=== PATIENT | female | born 1990 | race Caucasian/White ===

== ENCOUNTER 2018-02-11 11:30 | Inpatient (IN) | payer SELFPAY ==
[2018-02-11 13:46] VITALS: BMI 25.8
[2018-02-11] MEDS: miSOPROStol 200 MCG Tablet 800 MCG VAGINAL (15:39)
[2018-02-11 15:41] LABS: Hematocrit 35.7 % (37-47); Hemoglobin 11.9 g/dl (12.0-15.0); Mean Corp Hgb Conc 33.3 g/gl (32-36); Mean Corpuscular Hgb 30.9 pg (27.0-32.0); Mean Corpuscular Volume 92.7 fL (81-99); Mean Platelet Vol. 10.5 fl (6.2-12.0); Platelet Count 208 K/mm3 (150-450); RBC Distribution Width CV 13.3 % (11.6-14.6); RBC Distribution Width SD 44.6 fl (35.1-43.9); Red Blood Count 3.85 M/mm3 (4.2-5.4)
[2018-02-11 15:44] LABS: Scan Indicated on CBC? Y/N NO
--- NOTE | 2018-02-11 19:11 | NURSING ---
1830 Spoke with Mom about our sharing the [facility] basket for grief. We discussed each item in the basket to see what she would like and would not. Mom is not interested in photography but is interested in doing molds and ink prints of hands and feet. We discussed if her milk would come in following her discharge and how to handle this event if this would occur. Mom very open in discussing her wishes and what would please her following delivery. Mom encouraged to take all the time she needs for grieving because everyone grieves differently but it is so important that she does not sadler it. Mom was very agreeable in discussing her wishes and thoughts following her delivery. No tears at this time but realizes that she may feel very differently following her delivery when she sets her eyes on her little one. We discussed our grieving walk to remember service in March and that she would be receiving an invitation but in no ways means they have to come but would be encouraged to think about it as a family. Hugs were given and let Mom know she would be in my thoughts and prayers. Brandie RODRIGUEZ
[2018-02-11] MEDS: miSOPROStol 200 MCG Tablet 400 MCG VAGINAL ×2 (19:44→23:46)
[2018-02-11] MEDS: Acetaminophen 325 MG Tablet PO (22:08)
--- NOTE | 2018-02-12 | PLAC_PTH ---
PATIENT: KATE DILLARD LOC: WP U#:[id number] AGE/SX: 27/F ROOM: WP021 RE02/11/[address]: Dr. Rhona Lange MD : 1990 BED: 1 DIS: 02/12/2018 SPEC #: [id number] RECD: 02/12/18 13:16 STATUS: CHRIS REKarthikeyan #: [id number] YESSI: 02/12/18 00:[address]: Rhona Lange DEPT: SURGICAL PATHOLOGY RECD BY: Jesús Steinberg ENTERED: 02/12/18 13:16 SP TYPE: PLACENTA OTHR DR: No Primary Care Phys Tissues: Placenta, NOS Procedures: Surgery Specimen Level V HEADER OPERATION: Vaginal delivery PRE-OP DIAGNOSIS: 24-week demise TISSUE SUBMITTED: Placenta MICROSCOPIC DIAGNOSIS Pichardo placenta (227 gm): Umbilical cord ? trivascular with no inflammation. Placental membranes ? acute deciduitis with focal acute chorionitis. Placental disc ? immature placenta consistent with gestational age, increased intraparenchymal fibrin plaques, focal Carey-Sandro change. AM:isrrael 02/13/18 MICROSCOPIC DESCRIPTION Slides are reviewed. GROSS DESCRIPTION SPECIMEN: PLACENTA / CLINICAL INFORMATION: A. Weight: Unavailable B. Gestational Age: 25 weeks C. Sex: Female PLACENTAL WEIGHT (POST FIXATION): 227 gm PLACENTAL DIMENSIONS: 15 x 12 x 2.5 cm PLACENTAL SHAPE: Usual ovoid PLACENTAL WEIGHT FOR GESTATIONAL AGE: Within normal limits MEMBRANES - Present A. Insertion: Marginal B. Site of rupture from edge: At edge of placental disc C. Color of membrane: Roca-sahu D. Abnormalities: None UMBILICAL CORD - Present A. Color: Roca-sahu B. Insertion: Eccentric C. Length: 53 cm D. Diameter: 1.1 cm E. Number of vessels: Three F. Abnormalities: None PLACENTAL DISC ? The specimen consists of a placenta with attached membranes and umbilical cord. A. Color of surface: Roca-sahu B. surface abnormalities: None C. Maternal cotyledons: Intact with minimal tears D. Attached retro placental clot: No clot E. Cut surface: Dark red and spongy F. Lesions: None G. Separate clot: Absent SECTIONS SUBMITTED: 1. Membrane roll and umbilical cord ( end notched) 2. Placental disc, and maternal surfaces 3. Placental disc, and maternal surfaces 4. Placental disc, and maternal surfaces AM:isrrael 02/12/18 TC:2 CPT: 24046
[2018-02-12] MEDS: Ondansetron 4 MG/2 ML Vial IV (01:35)
[2018-02-12] MEDS: 0.9% Saline Lock 10 ML Syringe IV (01:37)
[2018-02-12] MEDS: Oxytocin 30 units/NS 500 ml 30 UNITS/500 ML IV.SOLN 334 UNITS IV (01:51)
--- NOTE | 2018-02-12 02:20 | PCM.HP.OB ---
- Problem List (1) IUFD at 20 weeks or more of gestation Status: Acute (2) Limited care in second trimester Status: Acute History Date of Admission: 02/12/18 History of this : This is a 27 year-old, at 25 weeks gestational age presents with IUFD diagnosed in the office yesterday. She had received care from a blocklayer in the community without any complications thus far but noted no movement for 4 days. She denies any bleeding, fever, abdominal pain, discharge, or dysuria. She has a daughter who is a year old born uncomplicated at home. Allergies No Known Allergies Allergy (Unverified 02/10/18 12:53) Home Medications: Home Medications NK [NK] 02/10/18 Smoking Status: Never smoker Alcohol: None Number of Fetus(es): 1 Heart Tracing: none seen. color doppler done in office yesterday and no heart tones seen. History Past Pregnancies: Past Pregnancies previous term uncomplicated Labs: Mom's Labs & Results 02/11/18 02/11/18 02/11/18 15:15 15:15 15:15 WBC 8.0 RBC 3.85 L Hgb 11.9 L Hct 35.7 L MCV 92.7 MCH 30.9 MCHC 33.3 RDW 13.3 RDW Differential 44.6 H Plt Count 208 MPV 10.5 Kleihauer-Betke F Hgb Pending Blood Type O POSITIVE Antibody Screen NEGATIVE Course Did the patient receive Yes care? Labs HIV/AIDS Not done Current Obstetrical History Gestational Diabetes No Incompetent Cervix No Infertility No IUGR No Macrosomia No Hypertension/Pre-eclampsia No Placenta Previa/Abruption No PTL/PROM No Uterine anomaly No Oligohydramnios No Polyhydramnios No Multiple gestation No Past Medical History Asthma No Diabetes No Hypertension No Heart disease No Mitral valve prolapse No Neurologic/Seizure disorder/ No Migraines Kidney disease No Liver disease No Varicosities No Clotting disorders/Hx of DVT No Thyroid Dysfunction No Other medical diseases No Psychiatric disorders No Major trauma No Abnormal PAP smear No Sleep apnea No Mammogram in the last 2 years No Medications Taken During Dose/Freq.: [PNV] one tablet Last Date/Time of Medication 02/09/18 Taken: [PNV] Reason for taking medication [ took occasionally PNV] Social History Marital Status: Alleged father meliza Chapman Smoking No Smoking Status Never smoker How long have you used never took above substances substances (years)? Expected Infant Delivery Method: Spontaneous Vaginal Review of Systems Constitutional: Denies: Fever, Malaise Eyes: Denies: Blurred vision, Vision Change HEENT: Denies: Head Aches, Visual Changes Cardiovascular: Denies: Chest Pain, Palpitations Respiratory: Denies: Cough, Shortness of Breath, Wheezing Gastrointestinal: Denies: Abdominal Pain, Diarrhea, Nausea, Vomiting Genitourinary: Denies: Dysuria, Hematuria Musculoskeletal: Denies: Joint Pain, Muscle pain Skin: Denies: Lesions, Rash Neurological: Denies: Blurred vision, Focal weakness, Headaches Psychiatric: Denies: Anxiety, Depression Endocrine: Denies: Heat/ Cold Intolerance Hematologic/ Lymphatic: Denies: Easy Bruising, Easy Bleeding Physical Exam General: Alert, Cooperative, No apparent distress HEENT: Atraumatic, Normocephalic. Negative for: Thyromegaly, Lymphadenopathy Cardiovascular: Regular rate Lungs: Normal air movement Abdomen: Soft, Non Tender, Gravid Neurological: Deep Tendon Reflexes 2+/4 and Symmetrical, Neuro grossly intact. Negative for: Clonus BUSINESS ATTORNEY: Normal external genitalia. Negative for: Vulvar lesions Estimated gestational size: Appropriate for gestational size - measuring 23-24 weeks Presentation: Cephalic Cervix Dilation (cm): 0 Effacement (%): 0 Assessment/Plan All Active Problems (Last Reviewed 02/10/18 @ 12:54 by Laina Roper) IUFD at 20 weeks or more of gestation (Acute) Limited care in second trimester (Acute) This is a 27 year-old, , at 25 weeks gestational age presented for IOL secondary to demise. plan cytotec IOL epi if desired, pain meds PRN patient declined additional bloodwork.
[2018-02-12] MEDS: Oxytocin 30 units/NS 500 ml 30 UNITS/500 ML IV.SOLN 167 UNITS IV (02:25)
--- NOTE | 2018-02-12 02:31 | PCM.OB.VAG ---
- Problem List (1) IUFD at 20 weeks or more of gestation Status: Acute (2) Limited care in second trimester Status: Acute Vaginal Delivery Maternal Presentation: Medically Indicated Induction 27-year-old at 25 weeks presents for induction of labor secondary to intrauterine demise. She was receiving care by a spring layer and had noted no movement for 4 days and heart tones were unable to be heard at home by her end maker. Patient presented to the office for evaluation and no heart tones were seen no color Doppler flow over any parts record were seen. measurements were consistent with 23-24 weeks. Patient was consented for induction of labor. Patient presented the next day for induction of labor with Cytotec and after approximately 12 hours patient proceeded to spontaneous delivery of the head with the water intact followed by the rest of the baby which was immediately noted to have very tight nuchal cord and body cord ?2 that was tightly wrapped around the baby suspicious of cord accident as cause for the demise. No other gross abnormalities were noted with the facial abdominal structures or extremities. The fetus was noted to be female. No gross cranial abnormalities were noted. Cord was cut and the was placed in a bassinet. Placenta delivered spontaneously immediately following was noted be intact and have a three-vessel cord. No gross abnormalities are abruption seen. No signs of infection or foul odor was noted. Minimal bleeding was noted and immediate firm texture to the fundus was noted and EBL was 100 cc. Perineum was intact with no lacerations noted. Clear amniotic fluid had been noted. Patient tolerated the delivery well. Method of Induction: Cytotec Medical Reason for Induction: demise Amniotic Membrane Rupture Type: Artificial Amniotic Fluid Description: Clear Final MILADYS: 05/24/18 Gestational age: 25 Weeks and 4 Days Date of Procedure: 02/12/18 Pre-Operative Diagnosis: iol demise Post-Operative Diagnosis: same Surgery/ Procedure Performed: Spontaneous Vaginal Delivery Type of Anesthesia: None Description of Procedure: Patient presented for induction of labor with Cytotec and after approximately 12 hours patient proceeded to spontaneous delivery of the head with the water intact followed by the rest of the baby which was immediately noted to have very tight nuchal cord and body cord ?2 that was tightly wrapped around the baby suspicious of cord accident as cause for the demise. No other gross abnormalities were noted with the facial abdominal structures or extremities. The fetus was noted to be female. No gross cranial abnormalities were noted. Cord was cut and the was placed in a bassinet. Placenta delivered spontaneously immediately following was noted be intact and have a three-vessel cord. No gross abnormalities are abruption seen. No signs of infection or foul odor was noted. Minimal bleeding was noted and immediate firm texture to the fundus was noted and EBL was 100 cc. Perineum was intact with no lacerations noted. Clear amniotic fluid had been noted. Patient tolerated the delivery well. Presentation: TANJA Placental Delivery Description: Spontaneous Placenta Disposition: [facility] Cord Vessel Description: 3 Vessels Cord Entanglement: Around neck x 2, tight, - - body cord x 2, all tightly intertwined Estimated Blood Loss: 100 A gender: Female (1 minute): 0 (5 minute): 0 Episiotomy Description: None Laceration: None Medications given after delivery: IV Pitocin Complications: None
--- NOTE | 2018-02-12 02:37 | PCM.DCVAG ---
Discharge Diet: No Restrictions Discharge Activity: Return to Normal Activity, May not drive while taking narcotic pain medications., May Shower May resume sexual activity in: 4-6 weeks Call your doctor if your incision/area has: Continuous Slow Oozing, Sudden Increased Bleeding, Increased Pain/ Swelling, Increased Redness, Foul Smelling Discharge Additional Instructions: If you experience any of the following, contact your healthcare provider. Bleeding that soaks a pad every hour for 2 hours Fever 100.4 or higher Unrelieved incision or abdominal pain Swelling, redness, discharge or bleeding from your incision or episiotomy site Your incision begins to separate Problems urinating (including inability to urinate or burning while urinating). Visual changes Severe headache Flu-like symptoms Pain or redness in one of both of your breasts Pain, warmth, tenderness or swelling in your legs, especially the calf area Frequent nausea and vomiting Symptoms of depression or anxiety If you experience any of the following, call 911 or go to the nearest Emergency Room. Chest pain Problems breathing Seizure activity Partial or complete paralysis of a body part, slurred speech, weakness or drooping of the face, or a sudden inability to walk or hold your balance Allergies/Adverse Reactions: Allergies No Known Allergies Allergy (Unverified 02/10/18 12:53) Medications to take at Discharge NK [NK] 02/10/18 Please Follow Up With: Rhona Lange MD - [phone] When: Call to make an appointment with your doctor in 6 weeks. If you had elevated Blood pressure or 4th degree laceration you will need to be seen in 2 weeks. Primary Care Physician: Care Physician,No Primary [Primary Care Provider] - Test Results: Test results from this visit will be discussed in further detail at your follow-up appointment, if applicable.
[2018-02-12 06:51] LABS: Pathology Specimen OB SEE PATHOLOGY REPORT
[2018-02-12] MEDS: Acetaminophen 500 MG Tablet 1000 MG PO (07:41)
--- NOTE | 2018-02-12 09:30 | CASEMGMT ---
Social Work Note Labor and Delivery Unit Received verbal notice from nursing staff that patient presented to hospital with a demise. Received report this morning that family planning to discharge when ride arrives at 1000. Chart reviewed. Noted that patient was seen by nursing and provided grief resources. To room to see patient, to offer support and explore need for any resources close to patient's home county of [facility]. Per Chanelle RODRIGUEZ, the waste collection driver came early and patient has already been discharged. RN repots patient did have resources and appeared to have support from family. -SERGEI Palm, HEAD OF HUMAN RESOURCES
[2018-02-12 11:48] LABS: Kleihauer-Betke Negative
== END 2018-02-12 09:29 | disposition home or self-care (01) | DRG 775 ==
PROVIDERS: Admitting Provider Obstetrics & Gynecology; Visit Provider Obstetrics & Gynecology
DX: O36.4XX0 Maternal care for intrauterine death, not applicable or unspecified (principal); Z37.1 Single stillbirth; O69.1XX0 Labor and delivery complicated by cord around neck, with compression, not applicable or unspecified; Z3A.25 25 weeks gestation of pregnancy
CPT/HCPCS: 85027; 85460; 86850; 86900; 88307; 99218; A4216; G0378; J2405